=== PATIENT | female | born 1960 | race Caucasian/White ===

== ENCOUNTER 2018-08-20 13:52 | Day surgery (SDC) | payer OTHER ==
[~2018-08-20] VITALS: Ht 177.8 cm; Wt 100.0 kg
[~2018-08-20 13:52] MED LIST: LIDOCAINE 2% (SDV) 5 ML INJ ONE
[2018-08-20 14:56] VITALS: Ht 177.8 cm; Wt 100.0 kg
[2018-08-20] MEDS ORDERED: NO MEDS. (15:04)
[2018-08-20 15:27] VITALS: BP 125/79; PULSE 71; RESP 18
[2018-08-20] MEDS ORDERED: PROPOFOL 60 ML ONE (15:58)
--- NOTE | 2018-08-20 16:17 | PREAC ---
Date/Time of Note Date/Time of Note DATE: 08/20/18 TIME: 16:16 Anesthesia Eval and Record Evaluation Time Pre-Procedure Interview DATE: 08/20/18 TIME: 16:16 Age 57 Sex female NPO: 8 hrs Preoperative diagnosis screening Planned procedure colonoscopy Past Medical History Past Medical History: Includes GI: Obesity Surgery & Anesthesia Issues No known issue Meds Anticoagulation: No Beta Jossy within 24 hr: No Reason Beta Jossy not given: Pt. not on B-Jossy Reported Medications [No Meds.] No Conflict Check 08/20/18 Meds reviewed: Yes Allergies Coded Allergies: No Known Drug Allergies (Verified Allergy, Unknown, 08/20/18) Allergies Reviewed: Yes Labs/Studies Labs Reviewed: Reviewed by anesthesiologist test: Negative Studies: ECG, CXR Pre-procedure Exam Last vitals Vital Signs Date Temp Pulse Resp B/P (MAP) Pulse Ox O2 O2 Flow FiO2 Time Delivery Rate 08/20/18 96.8 71 18 125/79 97 Room Air 15:27 (94) Airway: Adequate mouth opening, Adequate thyromental dist Mallampati: Mallampati III Teeth: Normal Lung: Normal Heart: Normal ASA Physical Status ASA physical status: 2 Emergency: None Planned Anesthetic General/MAC: MAC Planned Pain Management Parenteral pain med Pre-operative Attestations Prior to commencing anesthesia and surgery, the patient was re-evaluated, there was verification of: *The patient's identity *The results of appropriate recent lab work and preoperative vital signs *The above evaluation not changing prior to induction *Anesthetic plan, risk benefits, alternative and complications discussed with patient/family; questions answered; patient/family understands, accepts and wishes to proceed. MP PERKINS MD Aug 20, 2018 16:17
[2018-08-20] MEDS ORDERED: PROPOFOL 40 ML ONE (16:40)
[2018-08-20 17:30] VITALS: BP 137/81; PULSE 66; RESP 15
--- NOTE | 2018-08-20 20:35 | PAC ---
Date/Time of Note Date/Time of Note DATE: 08/20/18 TIME: 20:35 Post-Anesthesia Notes Post-Anesthesia Note Last documented vital signs Vital Signs Date Temp Pulse Resp B/P (MAP) Pulse Ox O2 O2 Flow FiO2 Time Delivery Rate 08/20/18 66 15 137/81 99 Room Air 17:30 (99) 08/20/18 96.8 15:27 Activity: WNL Respiratory function: WNL Cardiovascular function: WNL Mental status: Baseline Pain reasonably controlled: Yes Hydration appropriate: Yes Nausea/Vomiting absent: Yes MP PERKINS MD Aug 20, 2018 20:35
== END 2018-08-20 17:23 | disposition home or self-care (01) ==
LOC: GIL 13:52
PROVIDERS: ATTEND Internal Medicine Gastroenterology
DX: Z12.11 Encounter for screening for malignant neoplasm of colon (principal); D12.2 Benign neoplasm of ascending colon; D12.4 Benign neoplasm of descending colon; K57.31 Diverticulosis of large intestine without perforation or abscess with bleeding; K64.8 Other hemorrhoids
CPT/HCPCS: 45385; 88305; Z7610